=== PATIENT | male | born 1980 | race Two or more races ===

== ENCOUNTER 2021-11-06 16:38 | Emergency (ER) | payer OTHER ==
[~2021-11-06] VITALS: Ht 162.6 cm; Wt 90.9 kg
[2021-11-06 16:53] VITALS: BP 148/94
[2021-11-06] MEDS ORDERED: proparacaine 0.5% ophthalmic drops 15ml LEFTEYE ONE (17:50)
[2021-11-06] MEDS ORDERED: ERYT1OIN6 LEFTEYE (18:41)
== END 2021-11-06 18:59 | disposition home or self-care (01) ==
LOC: ER 16:39
DX: S05.01XA Injury of conjunctiva and corneal abrasion without foreign body, right eye, initial encounter (principal); H57.12 Ocular pain, left eye; H53.8 Other visual disturbances; Z79.2 Long term (current) use of antibiotics; X58.XXXA Exposure to other specified factors, initial encounter; Y93.89 Activity, other specified; Y92.89 Other specified places as the place of occurrence of the external cause; Y99.8 Other external cause status
CPT/HCPCS: 99283